=== PATIENT | female | born 1975 | race Caucasian/White ===

== ENCOUNTER 2018-10-14 11:48 | Emergency (ER) | payer SELFPAY ==
[2018-10-14 12:03] VITALS: BP 148/96
[2018-10-14] MEDS ORDERED: PREDNISONE 20 MG TABLET PO ONE (13:07)
--- NOTE | 2018-10-14 13:11 | ER Document Report ---
HPI - HPI Patient complains to provider of: skin rash Time Seen by Provider: 10/14/18 12:58 Onset: Last week Onset/Duration: Persistent Quality of pain: Burning Pain Level: 5 Context: She complains of pruritic skin rash due to flareup of her psoriasis. Patient denies any improvement with [id number] emollients. Associated Symptoms: Other - skin rash. denies: Fever, Headache Exacerbated by: Denies Relieved by: Denies Similar symptoms previously: Yes Recently seen / treated by doctor: No - ROS ROS below otherwise negative: Yes Systems Reviewed and Negative: Yes All other systems reviewed and negative - CONSTITUTIONAL Constitutional: DENIES: Fever, Chills - EENT EENT: DENIES: Sore Throat - NEURO Neurology: DENIES: Headache - GASTROINTESTINAL Gastrointestinal: DENIES: Nausea, Patient vomiting - REPRODUCTIVE Reproductive: DENIES: : - DERM Skin Color: Erythema Skin Problems: Rash Past Medical History - General Information source: Patient - Social History Smoking Status: Current Every Day Smoker Smoking Education Provided: Yes Frequency of alcohol use: Social Drug Abuse: None Occupation: none Family History: Reviewed & Not Pertinent Patient has suicidal ideation: No Patient has homicidal ideation: No Renal/ Medical History: Denies: Hx Peritoneal Dialysis Skin Medical History: Reports Hx Psoriasis Surgical Hx: Negative Vertical Provider Document - CONSTITUTIONAL Agree With Documented VS: Yes Exam Limitations: No Limitations General Appearance: WD/WN, No Apparent Distress - INFECTION CONTROL TRAVEL OUTSIDE OF THE [place] IN LAST 30 DAYS: No - HEENT HEENT: Atraumatic, Normal ENT Exam, Normocephalic - NECK Neck: Normal Inspection, Supple. negative: Lymphadenopathy-Left, Lymphadenopathy-Right - RESPIRATORY Respiratory: Breath Sounds Normal, No Respiratory Distress - CARDIOVASCULAR Cardiovascular: Regular Rhythm, No Murmur, Tachycardia - BACK Back: Normal Inspection - MUSCULOSKELETAL/EXTREMETIES Musculoskeletal/Extremeties: MAEW, FROM - NEURO Level of Consciousness: Awake, Alert, Appropriate Motor/Sensory: No Motor Deficit - DERM Integumentary: Warm, Dry, Rash - Diffuse erythematous scaling flaking rash distributed generally, most concentrated to trunk. Course - Re-evaluation Re-evalutation: 10/14/18 13:14 Patient presents with psoriasis exacerbation. Nontoxic in appearance. - Vital Signs Vital signs: Temp Pulse Resp BP Pulse Ox 98.3 F 112 H 20 148/96 H 99 10/14/18 12:01 10/14/18 12:01 10/14/18 12:01 10/14/18 12:01 10/14/18 12:01 Discharge - Discharge Clinical Impression: Psoriasis Condition: Stable Disposition: HOME, SELF-CARE Instructions: Antihistamines ([facility]), Psoriasis ([facility]), Topical Steroid Cream or Ointment ([facility]), Steroid Medication Additional Instructions: Return immediately for any new or worsening symptoms Followup with your primary care provider, call tomorrow to make a followup appointment Use [id number] skin emollient such as CeraVe to help with dry skin Prescriptions: Hydroxyzine HCl [Atarax 25 mg Tablet] 1 - 2 tab PO QID PRN #20 tablet PRN Reason: Prednisone [Deltasone 5 mg Tablet] 5 mg PO ASDIR PRN #100 tablet PRN Reason: Triamcinolone Acetonide [Aristocort 0.1% Cream] 1 applic TP TID #60 gm Forms: Smoking Cessation Education Referrals: [facility] [Provider Group] - Follow up as needed [facility] [Provider Group] - Follow up as needed
== END 2018-10-14 13:16 | disposition home or self-care (01) ==
LOC: ER 11:48
DX: L40.9 Psoriasis, unspecified (principal); F17.200 Nicotine dependence, unspecified, uncomplicated
CPT/HCPCS: 99282; J7512